=== PATIENT | female | born 1950 | race Caucasian/White ===

== ENCOUNTER 2016-10-30 13:34 | Emergency (ER) | payer MEDICARE ==
--- NOTE | 2016-10-30 16:00 | ED ---
Skin Complaint - HPI Summary HPI Summary: 66F presents with glass in right arm. She was walking in [facility] when a glass jar broke near her and she felt a piece of glass hit her arm. The pharmacy circled the piece of glass and sent her here. She has not tried to take it out. She denies any fever, spreading redness or signs of infection. She states it only hurts when she touches it. - History of Current Complaint Chief Complaint: EDRashSkinAbscess Time Seen by Provider: 10/30/16 15:28 Stated Complaint: ARM INJURY Pain Intensity: 2 - Allergy/Home Medications Allergies/Adverse Reactions: Allergies Allergy/AdvReac Type Severity Reaction Status Date / Time Adhesive Tape Allergy RED Verified 10/23/12 11:15 BLOTCHES ALL OVER Irbesartan [From Avapro] Allergy "FEELING Verified 10/23/12 11:15 OF SOMETHING CRAWLING IN HER HEAD" Rofecoxib [From Vioxx] Allergy "LIGHT Verified 10/23/12 11:15 HEADINESS" IVP DYE Allergy Hives Uncoded 10/23/12 11:15 PMH/Surg Hx/FS Hx/Imm Hx Endocrine/Hematology History: Denies: Hx Anticoagulant Therapy Cardiovascular History: Reports: Hx Coronary Artery Disease, Hx Hypertension - ON MEDS Comment Only: Other Cardiovascular Problems/Disorders - ON LIPITOR FOR NARROW ARTERIES Respiratory History: Reports: Other Respiratory Problems/Disorders - HX OF PNEUMONIA ABOUT 7 YEARS AGO Musculoskeletal History: Reports: Hx Arthritis - BILATERAL KNEES AND FEET Sensory History: Denies: Hx Contacts or Glasses, Hx Hearing Aid Opthamlomology History: Denies: Hx Contacts or Glasses - Cancer History Hx Chemotherapy: No Hx Radiation Therapy: No - Surgical History Surgery Procedure, Year, and Place: 2010 HAD D & C AFTER LAST ULTRASOUND FOR POLYPS. 1982 CHOLECYSTECTOMY, [facility] [place]. 1979 CSECTION, [facility] [place]. 1982 LEFT FIBULA FRACTURE REPAIRS, [facility] [place] Hx Anesthesia Reactions: Yes - NAUSEA, Infectious Disease History: No Infectious Disease History: Denies: Traveled Outside the [place] in Last 30 Days - Family History Known Family History: Positive: Diabetes - Social History Alcohol Use: None Substance Use Type: Reports: None Smoking Status (MU): Never Smoked Tobacco Review of Systems Negative: Fever Negative: Chest Pain Negative: Shortness Of Breath Positive: Other - piece of glass in arm All Other Systems Reviewed And Are Negative: Yes Physical Exam Triage Information Reviewed: Yes Vital Signs On Initial Exam: Initial Vitals Temp Pulse Resp BP Pulse Ox 96.3 F 83 16 158/70 95 10/30/16 13:47 10/30/16 13:47 10/30/16 13:47 10/30/16 13:47 10/30/16 13:47 Vital Signs Reviewed: Yes Appearance: Positive: Well-Appearing Skin: Positive: Warm, Dry, Other - 2mm piece of glass in right arm Head/Face: Positive: Normal Head/Face Inspection Eyes: Positive: Normal, Conjunctiva Clear Respiratory/Lung Sounds: Positive: Clear to Auscultation, Breath Sounds Present Cardiovascular: Positive: Normal, RRR Musculoskeletal: Positive: Strength/ROM Intact - right arm, Other - good pulses Diagnostics - Vital Signs Vital Signs Temp Pulse Resp BP Pulse Ox 10/30/16 15:29 96.3 F 83 16 158/70 95 10/30/16 13:47 96.3 F 83 16 158/70 95 - Laboratory Lab Statement: Any lab studies that have been ordered have been reviewed, and results considered in the medical decision making process. Course/Dx - Course Course Of Treatment: 66F presents with glass in right arm. She was walking in [facility] when a glass jar broke near her and she felt a piece of glass hit her arm. The pharmacy circled the piece of glass and sent her here. She has not tried to take it out. She denies any fever, spreading redness or signs of infection. She states it only hurts when she touches it. removed the piece of glass from her arm with tweezer. told to watch for signs of infection and keep it clean. patient understands and agrees with plan. - Differential Diagnoses - Skin Complaint Differential Diagnoses: Contact Dermatitis, Other - foreign body - Diagnoses Provider Diagnoses: Foreign body (FB) in soft tissue Discharge - Discharge Plan Condition: Good Disposition: HOME Patient Education Materials: Soft Tissue Foreign Body (ED) Referrals: Jace Modi MD [Primary Care Provider] - Additional Instructions: Place neosporin on area Return to ED if develop any signs of infection or any new or worsening symptoms
[2016-10-30 16:18] VITALS: BP 160/86
== END 2016-10-30 16:18 | disposition home or self-care (01) ==
LOC: ED 13:34
DX: S40.851A Superficial foreign body of right upper arm, initial encounter (principal); W45.8XXA Other foreign body or object entering through skin, initial encounter; Y93.89 Activity, other specified; Y92.89 Other specified places as the place of occurrence of the external cause
CPT/HCPCS: 99281

== ENCOUNTER 2016-11-16 09:40 | Emergency (ER) | payer MEDICARE ==
[2016-11-16] MEDS ORDERED: NS 0.9% 1000 ML* 1,000 ML IV ONE (09:44)
[2016-11-16] MEDS ORDERED: Ondansetron INJ* 2 MG/ML VIAL IV ONE ×2 (09:44→11:05)
[2016-11-16] MEDS ORDERED: Meclizine TAB* 12.5 MG PO ONE (09:44)
[2016-11-16 10:20] LABS: Hematocrit 38 % (35-47); Hemoglobin 12.4 g/dl (12.0-16.0); Mean Corpuscular HGB Conc 33 g/dl (31-36); Mean Corpuscular Hemoglobin 30 pg (27-31); Mean Corpuscular Volume 90 fL (80-97); Mean Platelet Volume 10 um3 (7.4-10.4); Red Blood Count 4.19 10^6/ul (4.0-5.4); Red Cell Distribution Width 14 % (10.5-15); White Blood Count 7.7 10^3/ul (3.5-10.8)
[2016-11-16 10:38] LABS: Troponin I 0.01 ng/mL (<0.04)
[2016-11-16 10:40] LABS: Albumin 3.5 g/dL (3.2-5.2); BUN/Creatinine Ratio 26.3 (8-20); C Reactive Protein 5.26 mg/L (< 5.00); EGFR Non-African American 71.5 (>60); Globulin 3.4 g/dL (2-4); Magnesium 1.9 mg/dL (1.9-2.7); Total Bilirubin 0.8 mg/dL (0.2-1.0); Total Protein 6.9 g/dL (6.4-8.9)
[2016-11-16 10:56] LABS: TSH (Thyroid Stimulating Horm) 5.23 mcIU/mL (0.34-5.60)
--- NOTE | 2016-11-16 10:57 | RAD ---
Indication: Sudden onset dizziness this morning. History of TIA. Comparison: August 31, 2005 Technique: Upright AP 1042 hours Report: Obese body habitus limits image quality. Clear lungs and pleural spaces. Negative for pneumothorax. Negative for cardiomegaly. Unremarkable central pulmonary vasculature. Prominent and tortuous thoracic aorta increased over the prior exam. IMPRESSION: Prominent and tortuous thoracic aorta increased over the prior exam. Consider CT for further assessment.
--- NOTE | 2016-11-16 11:29 | RAD ---
Indication: Dizziness. CT of the brain was performed without IV contrast. Ventricular structures are midline. No midline shift is noted. The extra-axial spaces are unremarkable. There is no evidence of intracranial mass or hemorrhage. No other high or low density lesions are identified. Mastoid air cells and paranasal sinuses are otherwise unremarkable. IMPRESSION: No intracranial mass or hemorrhage is noted.
[2016-11-16 12:39] LABS: Urine Bilirubin Negative (Negative); Urine Glucose Negative (Negative); Urine Nitrite Negative (Negative)
[2016-11-16] MEDS ORDERED: Metoclopramide TAB* 10 MG PO ONE (13:12)
[2016-11-16 13:38] VITALS: BP 115/78
--- NOTE | 2016-11-16 18:07 | ED ---
Maxwell Oden Alfonso, scribed for Robert Aly MD on 11/16/16 at 0956 . Dizziness - HPI Summary HPI Summary: This patient is a 66 year old F BIBA to [facility] with a chief complaint of dizziness since waking up this morning. The CC is described as room spinning. The patient rates the pain 0/10 in severity. Symptoms aggravated and alleviated by nothing. Patient reports nausea, weakness, and near syncope. Patient denies headache. PMHx of TIA, CAD, and HTN. - History Of Current Complaint Chief Complaint: EDSyncope Stated Complaint: DIZZINESS Time Seen by Provider: 11/16/16 09:50 Hx Obtained From: Patient Timing: Minutes - Waking up this morning Severity Initially: Moderate Severity Currently: Moderate Character: Room Spinning Aggravating Factor(s): Nothing Alleviating Factor(s): Nothing Associated Signs And Symptoms: Positive: Nausea, Other: - Positive weakness, and near syncope; Negative headache - Allergies/Home Medications Allergies/Adverse Reactions: Allergies Allergy/AdvReac Type Severity Reaction Status Date / Time Adhesive Tape Allergy RED Verified 10/23/12 11:15 BLOTCHES ALL OVER Irbesartan [From Avapro] Allergy "FEELING Verified 10/23/12 11:15 OF SOMETHING CRAWLING IN HER HEAD" Rofecoxib [From Vioxx] Allergy "LIGHT Verified 10/23/12 11:15 HEADINESS" IVP DYE Allergy Hives Uncoded 10/23/12 11:15 Home Medications: Home Medications Aspirin EC Low Dose* [Ecotrin EC Low Dose 81 MG*] 81 mg PO QAM 11/16/16 [ History Confirmed 11/16/16] Atorvastatin* [Lipitor*] 10 mg PO QAM 11/16/16 [History Confirmed 11/16/16] Metoprolol Succinate XL TAB* [Toprol XL TAB*] 50 mg PO QAM 11/16/16 [History Confirmed 11/16/16] PMH/Surg Hx/FS Hx/Imm Hx Endocrine/Hematology History: Denies: Hx Anticoagulant Therapy Cardiovascular History: Reports: Hx Coronary Artery Disease, Hx Hypertension - ON MEDS Comment Only: Other Cardiovascular Problems/Disorders - ON LIPITOR FOR NARROW ARTERIES Respiratory History: Reports: Other Respiratory Problems/Disorders - HX OF PNEUMONIA ABOUT 7 YEARS AGO Musculoskeletal History: Reports: Hx Arthritis - BILATERAL KNEES AND FEET Sensory History: Denies: Hx Contacts or Glasses, Hx Hearing Aid Opthamlomology History: Denies: Hx Contacts or Glasses Neurological History: Reports: Hx Transient Ischemic Attacks (TIA) - Cancer History Hx Chemotherapy: No Hx Radiation Therapy: No - Surgical History Surgery Procedure, Year, and Place: 2011 HAD D & C AFTER LAST ULTRASOUND FOR POLYPS. 1982 CHOLECYSTECTOMY, [facility]. 1979 CSECTION, [facility]. 1982 LEFT FIBULA FRACTURE REPAIRS, [facility] Hx Anesthesia Reactions: Yes - NAUSEA, Infectious Disease History: Denies: Traveled Outside the [place] in Last 30 Days - Family History Known Family History: Positive: Diabetes, Other - CVA and cancer - Social History Alcohol Use: None Substance Use Type: Reports: None Smoking Status (MU): Never Smoked Tobacco Review of Systems Positive: Nausea Neurological: Other - Positive roomspinning dizziness, weakness, and near syncope; negative headache. All Other Systems Reviewed And Are Negative: Yes Physical Exam - Summary Physical Exam Summary: VITAL SIGNS: Reviewed. GENERAL: Patient is a well-developed and obese female who is lying comfortable in the stretcher. Patient is not in any acute respiratory distress. She reports dizziness with room spinning. HEAD AND FACE: No signs of trauma. No ecchymosis, hematomas or skull depressions. No sinus tenderness. EYES: PERRLA, EOMI x 2, No injected conjunctiva, no nystagmus. No photophobia. EARS: Hearing grossly intact. Ear canals and tympanic membranes are within normal limits. MOUTH: Oropharynx within normal limits. NECK: Supple, trachea is midline, no adenopathy, no JVD, no carotid bruit, no c- spine tenderness, neck with full ROM. No meningeal signs, no Kernig's or brudzinskis signs. CHEST: Symmetric, no tenderness at palpation LUNGS: Clear to auscultation bilaterally. No wheezing or crackles. CVS: Regular rate and rhythm, S1 and S2 present, no murmurs or gallops appreciated. ABDOMEN: Soft, non-tender. No signs of distention. No rebound no guarding, and no masses palpated. Bowel sounds are normal. EXTREMITIES: FROM in all major joints, no edema, no cyanosis or clubbing. NEURO: Alert and oriented x 3. No acute neurological deficits. Speech is normal and follows commands. SKIN: Dry and warm GCS: 15 Triage Information Reviewed: Yes Vital Signs On Initial Exam: Initial Vitals Temp Pulse Resp Pulse Ox 96.5 F 74 20 98 11/16/16 09:46 11/16/16 09:46 11/16/16 09:46 11/16/16 09:46 Vital Signs Reviewed: Yes Diagnostics - Vital Signs Vital Signs Temp Pulse Resp Pulse Ox 11/16/16 09:46 96.5 F 74 20 98 - Laboratory Lab Results: Lab Results 11/16/16 11/16/16 11/16/16 Range/Units 10:02 10:02 10:02 WBC 7.7 (3.5-10.8) 10^3/ul RBC 4.19 (4.0-5.4) 10^6/ul Hgb 12.4 (12.0-16.0) g/dl Hct 38 (35-47) % MCV 90 (80-97) fL MCH 30 (27-31) pg MCHC 33 (31-36) g/dl RDW 14 (10.5-15) % Plt Count 308 (150-450) 10^3/ul MPV 10 (7.4-10.4) um3 Neut % (Auto) 66.0 (38-83) % Lymph % (Auto) 22.8 L (25-47) % [place] % (Auto) 5.8 (1-9) % Eos % (Auto) 4.2 (0-6) % Baso % (Auto) 1.2 (0-2) % Absolute Neuts (auto) 5.1 (1.5-7.7) 10^3/ul Absolute Lymphs (auto) 1.8 (1.0-4.8) 10^3/ul Absolute Monos (auto) 0.5 (0-0.8) 10^3/ul Absolute Eos (auto) 0.3 (0-0.6) 10^3/ul Absolute Basos (auto) 0.1 (0-0.2) 10^3/ul Absolute Nucleated RBC 0 10^3/ul Nucleated RBC % 0 Sodium 138 (133-145) mmol/L Potassium 4.0 (3.5-5.0) mmol/L Chloride 105 (101-111) mmol/L Carbon Dioxide 28 (22-32) mmol/L Anion Gap 5 (2-11) mmol/L BUN 21 (6-24) mg/dL Creatinine 0.80 (0.51-0.95) mg/dL Est GFR ( Amer) 92.0 (>60) Est GFR (Non-Af Amer) 71.5 (>60) BUN/Creatinine Ratio 26.3 H (8-20) Glucose 102 H (70-100) mg/dL Lactic Acid 1.0 (0.5-2.0) mmol/L Calcium 9.0 (8.6-10.3) mg/dL Magnesium 1.9 (1.9-2.7) mg/dL Total Bilirubin 0.80 (0.2-1.0) mg/dL AST 14 (13-39) U/L ALT 12 (7-52) U/L Alkaline Phosphatase 88 (34-104) U/L Troponin I 0.01 (<0.04) ng/mL C-Reactive Protein 5.26 H (< 5.00) mg/L B-Natriuretic Peptide ( - 100) pg/mL Total Protein 6.9 (6.4-8.9) g/dL Albumin 3.5 (3.2-5.2) g/dL Globulin 3.4 (2-4) g/dL Albumin/Globulin Ratio 1.0 (1-3) TSH 5.23 (0.34-5.60) mcIU/mL Urine Color Urine Appearance Urine pH (5-9) Ur Specific [place] (1.010-1.030) Urine Protein (Negative) Urine Ketones (Negative) Urine Blood (Negative) Urine Nitrate (Negative) Urine Bilirubin (Negative) Urine Urobilinogen (Negative) Ur Leukocyte Esterase (Negative) Urine Glucose (Negative) 11/16/16 11/16/16 Range/Units 10:02 12:20 WBC (3.5-10.8) 10^3/ul RBC (4.0-5.4) 10^6/ul Hgb (12.0-16.0) g/dl Hct (35-47) % MCV (80-97) fL MCH (27-31) pg MCHC (31-36) g/dl RDW (10.5-15) % Plt Count (150-450) 10^3/ul MPV (7.4-10.4) um3 Neut % (Auto) (38-83) % Lymph % (Auto) (25-47) % [place] % (Auto) (1-9) % Eos % (Auto) (0-6) % Baso % (Auto) (0-2) % Absolute Neuts (auto) (1.5-7.7) 10^3/ul Absolute Lymphs (auto) (1.0-4.8) 10^3/ul Absolute Monos (auto) (0-0.8) 10^3/ul Absolute Eos (auto) (0-0.6) 10^3/ul Absolute Basos (auto) (0-0.2) 10^3/ul Absolute Nucleated RBC 10^3/ul Nucleated RBC % Sodium (133-145) mmol/L Potassium (3.5-5.0) mmol/L Chloride (101-111) mmol/L Carbon Dioxide (22-32) mmol/L Anion Gap (2-11) mmol/L BUN (6-24) mg/dL Creatinine (0.51-0.95) mg/dL Est GFR ( Amer) (>60) Est GFR (Non-Af Amer) (>60) BUN/Creatinine Ratio (8-20) Glucose (70-100) mg/dL Lactic Acid (0.5-2.0) mmol/L Calcium (8.6-10.3) mg/dL Magnesium (1.9-2.7) mg/dL Total Bilirubin (0.2-1.0) mg/dL AST (13-39) U/L ALT (7-52) U/L Alkaline Phosphatase (34-104) U/L Troponin I (<0.04) ng/mL C-Reactive Protein (< 5.00) mg/L B-Natriuretic Peptide 91 ( - 100) pg/mL Total Protein (6.4-8.9) g/dL Albumin (3.2-5.2) g/dL Globulin (2-4) g/dL Albumin/Globulin Ratio (1-3) TSH (0.34-5.60) mcIU/mL Urine Color Yellow Urine Appearance Clear Urine pH 7.0 (5-9) Ur Specific [place] 1.014 (1.010-1.030) Urine Protein Negative (Negative) Urine Ketones Negative (Negative) Urine Blood Negative (Negative) Urine Nitrate Negative (Negative) Urine Bilirubin Negative (Negative) Urine Urobilinogen Negative (Negative) Ur Leukocyte Esterase Negative (Negative) Urine Glucose Negative (Negative) Result Diagrams: 11/16/16 10:02 11/16/16 10:02 Lab Statement: Any lab studies that have been ordered have been reviewed, and results considered in the medical decision making process. - Radiology CXR Radiology Interpretation Completed By: Radiologist - Prominent and tortuous thoracic aorta increased over the prior exam. Consider CT for further assessment. - CT Brain CT Interpretation Completed By: Radiologist - No intracranial mass or hemorrhage is noted. - EKG 0958 Cardiac Rate: NL - BPM 77 EKG Rhythm: Sinus Rhythm ST Segment: Normal Re-Evaluation - Re-Evaluation First Eval Re-Evaluation Time: 13:08 Comment: She is feeling better. Labs and imaging results reviewed. Dizzy Course/Dx - Course Course Of Treatment: This patient is a 66 year old F BIBA to [facility] with a chief complaint of dizziness since waking up this morning. The CC is described as room spinning. The patient rates the pain 0/10 in severity. Symptoms aggravated and alleviated by nothing. Patient reports nausea, weakness, and near syncope. Patient denies headache. PMHx of TIA, CAD, and HTN. Assessment/Plan: Test results with no significant abnormalities. Urinalysis negative for UIT. An EKG reveals NSR. A CXR reveals Prominent and tortuous thoracic aorta increased over the prior exam. Consider CT for further assessment. A CT brain reveals No intracranial mass or hemorrhage is noted. In the ED course the patient was hydrated with IV fluids, given Zofran and Reglan for N/V, and antivert for dizziness. After medication the symptoms resolved. The patient is asymptomatic and ambulating without any difficulty. Therefore, I believe the symptoms are secondary to vertigo. The patient will be discharged with PCP follow up. The patient is hemodynamically stable and alert and oriented to person, place, and time. I discussed all the findings and test results with the patient. Patient was instructed to return to the emergency room immediately if any of the symptoms return or worsens. Patient understands and agrees. Plan of care was discussed with the patient and patient understands and agrees with the plan of care. All questions were answered at patient satisfaction. There were no further complaints or concerns. Patient is alert and oriented x 3. Patient vital signs are stable. Patient is to follow up with primary care physician in the next 2 to 3 days. Patient understands and agrees. - Diagnoses Differential Diagnosis/HQI/PQRI: CVA, Dysrhythmia, Seizure, Transient Ischemic Attack, Vasovagal Reaction Provider Diagnoses: Vertigo Discharge - Discharge Plan Condition: Stable Disposition: HOME Prescriptions: Meclizine TAB* [Antivert 12.5 TAB*] 25 mg PO TID PRN #30 tab PRN Reason: Vertigo Ondansetron TAB* [Zofran 4 MG Tab*] 4 mg PO Q6H PRN #12 tab PRN Reason: Vomiting Patient Education Materials: Vertigo (ED) Referrals: Jace Modi MD [Primary Care Provider] - 3 Days The documentation as recorded by the Maxwell craig Alfonso accurately reflects the service I personally performed and the decisions made by Jermain rollins Walter, MD.
== END 2016-11-16 14:16 | disposition home or self-care (01) ==
LOC: ED 09:40
DX: R42 Dizziness and giddiness (principal); R55 Syncope and collapse; R11.0 Nausea; R53.1 Weakness
CPT/HCPCS: 36415; 70450; 71010; 80053; 81003; 83605; 83735; 83880; 84443; 84484; 85025; 86140; 99283; A9270-GY; J2405

== ENCOUNTER 2017-03-22 11:57 | Day surgery (SDC) | payer MEDICARE ==
[~2017-03-22 11:57] MED LIST: Buffered Lidocaine 0.9% SYRIN* 5 ML/SYR SYRINGE INTRADERM ONE; DiMENhydriNATE IV* 50 MG/ML VIAL IV PUSH PRN; Famotidine IV* 10 MG/ML 2 ML (20 mg) IV ONE; Ondansetron INJ* 2 MG/ML VIAL IV PRN; PROCHLORPERAZINE INJ 5 MG/ML 2 ML VIAL IV PRN
[2017-03-22] MEDS ORDERED: Buffered Lidocaine 0.9% SYRIN* 5 ML/SYR SYRINGE ONE (12:10)
[2017-03-22] MEDS ORDERED: Famotidine IV* 10 MG/ML 2 ML (20 mg) ONE (12:10)
[2017-03-22] MEDS ORDERED: KETAMINE HCL* 50 MG/ML 10 ML VIAL ONE (12:35)
[2017-03-22] MEDS ORDERED: fentaNYL* 50 MCG/ML 2 ML VIAL (100 MCG VIAL) ONE (12:35)
[2017-03-22] MEDS ORDERED: Midazolam* 1 MG/ML 10 ML VIAL (10 MG) ONE (12:36)
[2017-03-22] MEDS ORDERED: Benzocaine/Butamben/Tetracain* SPRAY ONE (13:02)
[2017-03-22] MEDS ORDERED: Atracurium* 10 MG/ML 10 ML VIAL ONE (14:49)
[2017-03-22] MEDS ORDERED: Ondansetron INJ* 2 MG/ML VIAL ONE (15:00)
[2017-03-22] MEDS ORDERED: Glycopyrrolate IV* 0.2 MG/ML 1 ML VIAL ONE (15:00)
[2017-03-22] MEDS ORDERED: Propofol* 10 MG/ML 20 ML BTL IV PUSH ONE (15:00)
[2017-03-22] MEDS ORDERED: Dexamethasone IV* 4 MG/ML 1 ML (4 MG) ONE (15:00)
[2017-03-22] MEDS ORDERED: Succinylcholine* 20 MG/ML 10 ML VIAL ONE (15:00)
[2017-03-22] MEDS ORDERED: Neostigmine Methylsulfate* 2 MG/2 ML SYRINGE ONE (15:00)
[2017-03-22] MEDS ORDERED: Labetalol IV* 5 MG/ML 20 ML VIAL ONE (15:18)
[2017-03-22 16:26] VITALS: BP 107/69
--- NOTE | 2017-03-23 05:28 | PRO ---
CC: Dr. Jace Modi * GASTROENTEROLOGY OPERATIVE REPORT: DATE OF PROCEDURE: 03/22/17 OPERATIVE PROCEDURE: Colonoscopy to terminal ileum. SURGEON: Connie Martinez MD ANESTHESIA: General. HISTORY OF PRESENT ILLNESS: Yun Panda is a pleasant 66-year-old female with a family history of colon cancer. Her last colonoscopy was performed in 2011 revealing benign polyps. She is here for surveillance colonoscopy. She denies any personal gastrointestinal complaints at this time. PREOPERATIVE DIAGNOSES: 1. Family history of colon cancer. 2. Personal history of benign colon polyps seen on colonoscopy in 2012. POSTOPERATIVE DIAGNOSES: 1. Normal appearing terminal ileum. 2. A 6 mm sessile ascending colon polyp with hot snare polypectomy. 3. Small nonbleeding internal hemorrhoid on retroflexion with hypertrophied anal papilla. 4. Fair colonoscopy preparation. RECOMMENDATIONS: 1. We will follow up with path results and determine timing of repeat colonoscopy after review of all of these results. DESCRIPTION OF PROCEDURE: Colonoscopy was explained in detail to the patient. The risks, benefits, complications, alternatives, possibilities of missed lesions were explained and understood. Complications included, but were not limited to, reaction to anesthesia, aspiration, increased risk of bleeding, and perforation. All questions were answered. The patient demonstrated understanding of the conversation. Informed consent was obtained. Next, the patient was brought to the OR suite and placed in the left lateral recumbent position where blood pressure, cardiac and oxygen monitors were applied. The patient was found to be a fit candidate for general anesthesia. After adequate sedation was achieved, digital rectal examination was performed, which revealed normal sphincter tone. No palpable masses were appreciated. Next, a standard pediatric colonoscope was inserted through the rectum, maneuvered all the way to the cecal base where the ileocecal valve and appendiceal orifice were identified and photographed. The terminal ileum was also intubated and was normal appearing. Subsequently, the colonoscope was withdrawn in a fashion that allowed adequate visualization of bowel. The patient had normal mucosa and vascular pattern throughout the colon. The cecum was normal appearing. Entry into the ascending colon revealed a 6 mm sessile polyp. It was removed via hot snare. Hemostasis was seen post polypectomy. Colonoscope was further withdrawn revealing a normal transverse descending sigmoid colon. On retroflexion, the patient had small nonbleeding internal hemorrhoid and a hypertrophied anal papilla. Air was then removed from the patient. Colonoscope was removed from the patient. The patient tolerated the procedure well. There were no immediate complications. 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 Thank you, Dr. Jace Modi, for allowing us to participate in the care of your patient. If you should have any further questions or concerns, please do not hesitate to contact us. [id number]/[facility] #: [id number] MTDMoni
--- NOTE | 2017-03-23 05:28 | PRO ---
CC: Dr. Modi * GASTROENTEROLOGY OPERATIVE REPORT: DATE OF PROCEDURE: 03/22/17 - [facility] OPERATIVE PROCEDURE: Esophagogastroduodenoscopy to the second portion of duodenum. SURGEON: Connie Martinez MD ANESTHESIA: General. HISTORY OF PRESENT ILLNESS: Yun Panda is a pleasant 66-year-old female who presents today for an endoscopy for further evaluation of epigastric pain. PREOPERATIVE DIAGNOSIS: 1. Epigastric pain. POSTOPERATIVE DIAGNOSES: 1. Normal appearing Z-line at 40 cm from the incisors, with biopsies. 2. Normal mid and proximal esophagus. 3. Minimal change antral gastritis, with biopsies from the antrum and body and CLOtest. 4. Mild duodenitis of the bulb. 5. Normal appearing second portion of the duodenum, with biopsies from the bulb and second portion to rule out celiac disease. RECOMMENDATIONS: 1. We will follow up with biopsy results. 2. The patient should follow up in our office in 1 to 2 weeks to review biopsy results and determine further plan of care. DESCRIPTION OF PROCEDURE: Esophagogastroduodenoscopy was explained in detail to the patient. The risks, benefits, complications, alternatives, and possibilities of missed lesions were explained and understood. Complications included, but were not limited to reaction to anesthesia, aspiration, increased risk of bleeding, and perforation. All questions were answered. The patient demonstrated understanding of the conversation. Informed consent was obtained. Next, the patient was brought to the OR, placed in the left lateral recumbent position where blood pressure, cardiac, and oxygen monitors were applied. The patient was found to be a fit candidate for general anesthesia due to comorbidities. After adequate sedation was achieved, a bite-block was placed. Next, a standard Olympus endoscope was inserted per os under direct visualization of the first and second portion of the duodenum. Second portion of the duodenum was grossly unremarkable. Entry into the bulb revealed mild erythematous changes consistent with duodenitis. Cold forceps biopsies were obtained from the duodenum that was visualized to rule out celiac disease. Further withdrawal of the endoscope into the gastric lumen revealed very mild erythema in the antrum. Cold forceps biopsies were obtained from the antrum and body and a CLOtest was also performed. On retroflexion, the patient had a normal gastric cardia sling. Further withdrawal of the endoscope into the distal esophagus revealed a regular appearing Z-line at 40 cm from the incisors. Biopsies were obtained from this area. The rest of the tubular esophagus was normal appearing. Air was then removed from the patient, endoscope was removed from the patient. The patient tolerated the procedure well. There were no immediate complications. After a period of observation, the patient was discharged home with a driver supervisor in stable condition. Thank you, Dr. Modi, for allowing us to participate in the care of your patient. If you should have any further questions or concerns, please do not hesitate to contact us. [id number]/[facility] #: [id number] MAUREEN
== END 2017-03-22 16:26 | disposition home or self-care (01) ==
LOC: OR 11:57
PROVIDERS: ATTEND Internal Medicine Gastroenterology
DX: R10.13 Epigastric pain (principal); K29.70 Gastritis, unspecified, without bleeding; K29.80 Duodenitis without bleeding; Z80.0 Family history of malignant neoplasm of digestive organs; Z86.010 Personal history of colon polyps; Z12.11 Encounter for screening for malignant neoplasm of colon; D12.2 Benign neoplasm of ascending colon; I10 Essential (primary) hypertension
CPT/HCPCS: 87077; 88305; A9270-GY; J0330; J1100; J2250; J2405; J2704; J3010

== ENCOUNTER 2019-07-29 13:00 | Inpatient (IN) | payer MEDICARE, OTHER ==
--- OUTSIDE RECORDS SUMMARY | 2019-07-29 13:26 | XMS REPORT | Continuity of Care Document ---
:1950 External Reference #:[id number] Author Name JEFFERY Santiago Address [address] [place] [address] Care Team Providers Name Role Phone [place] Penny - Obstetrics & Care Team Information [place] [phone] Gynecology Jace Modi MD - Family Medicine Care Team Information [place] Problems Active Problems Provider Date Essential hypertension Franko Aguiar M.D. Onset: 04/27/1999 Hyperlipidemia Jace Modi M.D. Onset: 09/08/2005 Obesity Jace Modi M.D. Onset: 09/08/2005 Degenerative joint disease involving Jace Modi M.D. Onset: 09/08/2005 multiple joints Transient cerebral ischemia Jace Modi M.D. Onset: 09/08/2005 Disorder of menstruation Jace Modi M.D. Onset: 03/24/2011 Cough Jace Modi M.D. Onset: 03/12/2015 Conjunctivitis Jace Modi M.D. Onset: 03/12/2015 Mixed hyperlipidemia Jace Modi M.D. Onset: 03/12/2015 Social History Type Date Description Comments Sex Unknown Tobacco Use Start: Unknown Nonsmoker Tobacco Use Start: Unknown Patient has never smoked Allergies, Adverse Reactions, Alerts Active Allergies Reaction Severity Comments Date Avapro Light-Headed 04/14/2005 Adhesives 12/25/2008 Contrast Dye 10/26/2016 Medications Active Medications SIG Qnty Indications Ordering Provider Date Lipitor 1 by mouth 90tabs E78.4 Jace Modi, 03/28/2019 40mg Tablets every day M.D. Aspirin 1 po qd Family Medicine 11/26/2008 81mg Che[facility] Toprol XL take one tablet 90tabs Jace RuizMarkus Rian, 01/15/2001 50mg Tablets by mouth every M.D. ER 24HR day Immunizations CPT Code Status Date Vaccine Lot # [id number] Given 01/26/2019 High-Dose, Influenza Virus Vacccine-fluzone 65 and older 80097 Given 03/24/2018 Tdap Tetanus, W Pertussis 14506 Given 01/22/2018 High-Dose, Influenza Virus Vacccine-fluzone 65 and older 17460 Given 08/28/2014 Pneumococcal Conjugate Vacc-13 [id number] 70166 Given 03/13/2013 DO Not Use Split Influenza Virus Vaccine 01744 Given 03/27/2007 Tetanus And Diptheria Adult Preservative Free >7Yrs 36477 Given 03/27/2007 DO Not Use Split Influenza Virus Vaccine [id number] 55580 Given 01/02/2006 Pneumococcal Immunization [id number] 71628 Given 03/17/2005 DO Not Use Split Influenza Virus Vaccine 95637 Given 01/10/2002 Influenza Immunization 91388 Given 01/10/2002 DO Not Use Split Influenza Virus Vaccine 70962 Given 01/15/2001 Influenza Immunization 16541 Given 01/15/2001 DO Not Use Split Influenza Virus Vaccine Vital Signs Date Vital Result Comment 06/12/2019 9:13am BP Systolic 162 mmHg BP Diastolic 90 mmHg BP Systolic Recheck 142 mmHg BP Diastolic Recheck 88 mmHg Heart Rate 84 /min Body Temperature 97.2 F Height 66.5 inches 5'6.50" Weight 342.00 lb BMI (Body Mass Index) 54.4 kg/m2 03/28/2019 1:07pm BP Systolic 130 mmHg BP Diastolic 84 mmHg Heart Rate 60 /min Body Temperature 97.7 F Respiratory Rate 12 /min Height 66.5 inches 5'6.50" Weight 347.00 lb BMI (Body Mass Index) 55.2 kg/m2 Results Test Acquired Date Facility Test Result H/L Range Note Laboratory test 02/27/2019 [facility] SEE RESULT 1, 2 finding BELOW Comprehensive 12/19/2018 [facility]) Sodium 143 mEq/L 134-149 Metabolic Prof Potassium 5.1 mEq/L 3.6-5.5 Chloride 106 mEq/L 94-112 Carbon Dioxide 29 mEq/L 21-32 Glucose 105 mg/dL 70-105 BUN 11 mg/dL 6-26 Creatinine 0.8 mg/dL 0.6-1.4 BUN/Creat Ratio 13.8 CALC 8.0-36.0 Calcium 9.4 mg/dL 8.6-10.2 Total Protein 7.5 g/dL 6.4-8.3 Albumin 4.1 g/dL 3.8-5.5 Globulin 3.4 g/dL 2.0-4.8 A/G Ratio 1.2 CALC 0.6-2.3 Alk. Phosphatase 110 U/L 30-110 Alt (SGPT) 20 U/L 7-35 Ast (Sgot) 20 U/L 5-34 Total Bilirubin 1.0 mg/dL 0.2-1.3 GFR Non- >60 ml/min/1.73m^ >=60 GFR >60 ml/min/1.73m^ >=60 Lipid Profile 12/19/2018 [facility]) Cholesterol 158 mg/dL 120- 200 Triglycerides 67 mg/dL 30-200 HDL Cholesterol 39 mg/dL 30-85 LDL (Calculated) 106 CALC 0-129 VLDL Cholesterol 13 mg/dL 0-50 HDL Risk Factor 4.1 CALC 0.0-4.4 1 [id number] 2 SEE RESULT BELOW Name: KRISTA FLAHERTY J : [address]: Ruby Smith MD Acct: [id number] Unit: [id number] AGE: 68 Location: [facility] Re02/27/19 SEX: F Status: REG REF SPEC: [id number] ORACIO: 02/27/19-[address] [facility] [address]: Ruby Smith MD REQ: [id number] RECD: 02/27/19-1196 STATUS: MAXI ROGERS DR: Jace Modi MD _ ORDERED: TP IMAGE ANALYS, HPV/Thin Prep COMMENTS: [id number] FINAL DIAGNOSIS Negative for Intraepithelial lesion or Malignancy HPV RESULTS Date Time Test Result Flag (u) Normal Range 02/27/19 0945 HPV DEJAH Negative Negative The high-risk HPV types detected by the assay include: 16, 18, 31, 33, 35, 39, 45, 51, 52, 56, 58, 59, 66, and 68. SPECIMEN(S) RECEIVED A. Ectocervical/Endocervical CYTOLOGY ADEQUACY Specimen Adequacy: Satisfactory of evaluation Transformation zone component identified CONTINUED ON NEXT PAGE DEPARTMENT OF PATHOLOGY, [address] [place] [address] Franko King M.D. Director [facility] # [id number] CYTOLOGY PATIENT INFORMATION Patient Information: HPV: High risk HPV RNA testing regardless of pap results. Actual Specimen Date: 02/27/19 LMP If Unknown: 1991 Signed by and Reported on: IGNACIO Diaz (ASCP) 1533 This Pap test was evaluated with the assistance of the [employer] Test Imaging System. Due to cytologic findings at the sales planning analyst microscope, comprehensive manual rescreening by a Z Os Mainframe Systems Programmer may be required. The Pap Smear is a screening test designed to aid in the detection of premalignant and malignant conditions of the uterine cervix. It is not a diagnostic procedure and should not be used as the sole means of detecting cervical cancer. Both false- positive and false- negative reports do occur. Depending on your risk status, a Pap smear should be obtained and evaluated every 1-3 years. END OF REPORT DEPARTMENT OF PATHOLOGY, [address] [place] [address] Franko King M.D. Director [facility] # [id number] Procedures Date Code Description Status 04/24/2018 [id number] Mammogram Completed 04/14/2018 [id number] Mammogram Completed 03/22/2017 [id number] Colonoscopy Completed 01/16/2017 [id number] Mammogram Completed 10/29/2015 [id number] Mammogram Completed 10/23/2014 [id number] Mammogram Completed 08/27/2013 [id number] Mammogram Completed 02/03/2012 [id number] Colonoscopy Completed 01/02/2012 [id number] Mammogram Completed 12/30/2010 [id number] Mammogram Completed 12/10/2009 [id number] Mammogram Completed 04/18/2008 [id number] Mammogram Completed 01/29/2007 [id number] Colonoscopy Completed 01/09/2007 [id number] Mammogram Completed 12/29/2005 [id number] Mammogram Completed Medical Devices Description No Information Available Encounters Type Date Location Provider Dx Diagnosis Office Visit 03/28/2019 Main Office Jace Modi, E78.2 Mixed hyperlipidemia 1:00p M.D. I10 Essential (primary) hypertension Z12.39 Encounter for oth screening for malignant neoplasm of breast Assessments Date Code Description Provider 06/12/2019 D48.5 Neoplasm of uncertain behavior of skin JEFFERY Santiago 03/28/2019 E78.2 Mixed hyperlipidemia Jace Modi M.D. 03/28/2019 I10 Essential (primary) hypertension Jace Modi M.D. 03/28/2019 Z12.39 Encounter for other screening for malignant Jace Modi M.D. neoplasm of breast 12/19/2018 E78.2 Mixed hyperlipidemia Jace Modi M.D. Plan of Treatment Future Appointment(s):06/26/2019 9:15 am - JEFFERY Santiago at [facility] Atszoa0509/25/2019 10:10 am - Jace Modi M.D. at [facility] Kvvswm8206/12/2019 - Maryan Connell PAD48.5 Neoplasm of uncertain behavior of skinComments:See Dr. Castellon for further evaluation - June 19 11:15 am Continue calamine lotion on the lesion Return if neededAllComments:PCMHMedication Management Patient Understands medications he's taking? Yes Are there Barriers to Adherence? No Has the patient been asked about herbal supplements and therapies, and OTC meds? Yes Care Plan1. Patient has been queried about patient's goals/preferences and functional/lifestyle goals at relevant visits. Yes If relevant, describe: N/A2. Treatment goals as explained to the patient: above3. Are there barriers to meeting treatment goals? No If Yes , please describe:4. Self-Management goals as described to the patient: Yes As always, we strongly encourage a healthy diet and making physical activity a part of your every day life. If you have questions about how or where to start, please contact the office. Functional Status Description No Information Available Mental Status Description No Information Available Referrals Description No Information Available
--- OUTSIDE RECORDS SUMMARY | 2019-07-29 13:26 | XMS REPORT | Continuity of Care Document ---
:1950 External Reference #:[id number] Author Name Nani Juárez NP (transmitted by agent of provider Lara Norman) Address [address] [id number] Care Team Providers Name Role Phone [place] - Obstetrics & Care Team Information [place] [phone] Gynecology Jace Modi MD - Family Medicine Care Team Information [place] Problems Active Problems Provider Date Essential hypertension [...] Use Start: Unknown Patient has never smoked Smoking Status Reviewed: 07/29/19 Patient has never smoked Allergies, Adverse Reactions, Alerts Active Allergies Reaction Severity Comments Date Avapro Light-Headed 04/14/2005 Adhesives 12/25/2008 Contrast Dye 10/26/2016 Medications Active Medications SIG Qnty Indications Ordering Provider Date Lipitor 1 by mouth 90tabs E78.4 Jace Modi, 03/28/2019 40mg Tablets every day M.D. Aspirin 1 po qd Family Medicine 11/26/2008 81mg [facility] Toprol XL take one tablet 90tabs Jace Modi, 01/15/2001 50mg Tablets by mouth every M.D. ER 24HR day Immunizations CPT Code Status Date Vaccine Lot # [id number] Given 01/26/2019 High-Dose, Influenza Virus Vacccine-fluzone 65 and older 94802 Given 03/24/2018 Tdap Tetanus, W Pertussis 61744 Given 01/22/2018 High-Dose, Influenza Virus Vacccine-fluzone 65 and older 81312 Given 08/28/2014 Pneumococcal Conjugate Vacc-13 [id number] 46362 Given 03/13/2013 DO Not Use Split Influenza Virus Vaccine 31526 Given 03/27/2007 Tetanus And Diptheria Adult Preservative Free >7Yrs 41649 Given 03/27/2007 DO Not Use Split Influenza Virus Vaccine [id number] 09422 Given 01/02/2006 Pneumococcal Immunization 1007P 02510 Given 03/17/2005 DO Not Use Split Influenza Virus Vaccine 22237 Given 01/10/2002 Influenza Immunization 11515 Given 01/10/2002 DO Not Use Split Influenza Virus Vaccine 81655 Given 01/15/2001 Influenza Immunization 87331 Given 01/15/2001 DO Not Use Split Influenza Virus Vaccine Vital Signs Date Vital Result Comment 07/29/2019 11:04am BP Systolic 154 mmHg BP Diastolic 108 mmHg Heart Rate 78 /min Body Temperature 97.9 F Respiratory Rate 16 /min O2 % BldC Oximetry 98 % Weight 351.00 lb 06/12/2019 9:13am BP Systolic 162 mmHg BP Diastolic 90 mmHg BP Systolic Recheck 142 mmHg BP Diastolic Recheck 88 mmHg Heart Rate 84 /min Body Temperature 97.2 F Height 66.5 inches 5'6.50" Weight 342.00 lb BMI (Body Mass Index) 54.4 kg/m2 Results Test Acquired Date Facility Test Result H/L Range Note Laboratory test 07/29/2019 [facility](a) TSH <pending> 0.5-5.0 finding CBC Electronic ([facility] 07/29/2019 family medicine WBC 8.36 4.0-10.0 New) (607)- - RBC 4.44 3.93-6.0 Hemoglobin (Fma/CMC/CTX) 13.1 g/dL 12.0-17.0 Hematocrit (Fma/CMC/CTX) 41.1 % 35.0-50.0 Mean Corpuscular Vol 92.6 fL 80-95 Mean Corpuscular Hemoglobin 29.5 pg 25.6-32.2 Mean Corpuscular Hemo Concen 31.9 g/dL Low 32.2-36.0 Platelets 334 10^3/ul 163-400 RDW-CV 14.4 11.6-14.4 Mean Platelet Volume 11.7 fL 8.0-12.4 Absolute Neutrophils BLD 5.63 1.56-6.13 Absolute Lymphocytes 1.84 1.18-3.74 Absolute Monocytes BLD Auto 0.47 0.24-0.82 Absolute Eos Blood 0.32 0.04-0.54 Absolute Basophils 0.08 0.01-0.08 Neutrophil % 67.4 % 34.0-70.0 Lymph% 22.0 % 20.0-52.0 Monocytes % 5.6 % 5.0-12.0 Eos % 3.8 % 0.7-7.0 Basophil% 1.0 % 0-1.2 Laboratory test 07/29/2019 [facility] Troponin-I/TnI <pending> NG/ML 0-0.64 finding (607)- - D Dimer Quant (Fma) <pending> ng/mL 0.0-400 Laboratory test finding 02/27/2019 [facility] SEE RESULT BELOW 1, 2 1 [id number] 2 SEE RESULT BELOW Name: KRISTA FLAHERTY : [address]: Ruby Smith MD Acct: [id number] Unit: [id number] AGE: 68 Location: [facility] Re02/27/19 SEX: F Status: REG REF SPEC: [id number] ORACIO: 02/27/19-[address] [facility] [address]: Ruby Smith MD REQ: [id number] RECD: 02/27/19 STATUS: MAXI ROGERS DR: Jace Modi MD _ ORDERED: TP IMAGE ANALYS, HPV/Thin Prep COMMENTS: [id number] FINAL DIAGNOSIS Negative for Intraepithelial lesion or Malignancy HPV RESULTS Date Time Test Result Flag (u) Normal Range 02/27/19944 HPV DEJAH Negative Negative The high-risk HPV types detected by the assay include: 16, 18, 31, 33, 35, 39, 45, 51, 52, 56, 58, 59, 66, and 68. SPECIMEN(S) RECEIVED A. Ectocervical/Endocervical CYTOLOGY ADEQUACY Specimen Adequacy: Satisfactory of evaluation Transformation zone component identified CONTINUED ON NEXT PAGE DEPARTMENT OF PATHOLOGY, [address] [place] [address] Franko King M.D. Director [facility] # [id number] CYTOLOGY PATIENT INFORMATION Patient Information: HPV: High risk HPV RNA testing regardless of pap results. Actual Specimen Date: 02/27/19 LMP If Unknown: 1991 Signed by and Reported on: IGNACIO Diaz (ASCP) 1533 This Pap test was evaluated with the assistance of the [employer] Test Imaging System. Due to cytologic findings at the pre sales network engineer microscope, comprehensive manual rescreening by a Supply Chain Buyer may be required. The Pap Smear is [...] years. END OF REPORT DEPARTMENT OF PATHOLOGY, [address] [place] [address] Franko King M.D. Director [facility] # [id number] Procedures Date Code Description Status 07/29/2019 25660 Pulse Oximetry Completed 07/29/2019 75869 Electrocardiogram Complete Completed 04/24/2018 [id number] Mammogram Completed 04/14/2018 [id number] Mammogram Completed 03/22/2017 [id number] Colonoscopy Completed 01/16/2017 [id number] Mammogram Completed 10/29/2015 [id number] Mammogram Completed 10/23/2014 [id number] Mammogram Completed 08/27/2013 [id number] Mammogram Completed 02/03/2012 [id number] Colonoscopy Completed 01/02/2012 [id number] Mammogram Completed 12/30/2010 [id number] Mammogram Completed 12/10/2009 [id number] Mammogram Completed 04/18/2008 [id number] Mammogram Completed 01/29/2007 [id number] Colonoscopy Completed 01/09/2007 [id number] Mammogram Completed 12/29/2005 [id number] Mammogram Completed Medical Devices Description No Information Available Encounters Type Date Location Provider Dx Diagnosis Office Visit 07/29/2019 Main Office Nani Juárez, R06.02 Shortness of breath 11:00a VASCULAR MANAGER R00.2 Palpitations E78.2 Mixed hyperlipidemia I10 Essential (primary) hypertension E66.9 Obesity, unspecified Z86.73 Prsnl hx of TIA (TIA), and cereb infrc w/o resid deficits Z71.9 Counseling, unspecified Office Visit 06/12/2019 9:30a [facility] Office Maryan Miramontes D48.5 Neoplasm of JEFFERY Connell uncertain behavior of skin Office Visit 03/28/2019 1:00p Main Office Jace Salinas E78.2 Mixed hyperlipidemia Jacinto Modi I10 Essential (primary) hypertension Z12.39 Encounter for oth screening for malignant neoplasm of breast Assessments Date Code Description Provider 07/29/2019 R06.02 Shortness of breath Nani Juárez, EDILMA 07/29/2019 R00.2 Palpitations Nani Juárez NP 07/29/2019 E78.2 Mixed hyperlipidemia Nani Juárez, EDILMA 07/29/2019 I10 Essential (primary) hypertension Nani Juárez, EDILMA 07/29/2019 E66.9 Obesity, unspecified Nani Juárez, EDILMA 07/29/2019 Z86.73 Personal history of transient ischemic Nani Juárez , EDILMA attack (TIA), and cerebral infarction without residual deficits 07/29/2019 Z71.9 Counseling, unspecified aNni Juárez, VASCULAR MANAGER 06/12/2019 D48.5 Neoplasm of uncertain behavior of skin JEFFERY Santiago 03/28/2019 E78.2 Mixed hyperlipidemia Jace Modi M.D. 03/28/2019 I10 Essential (primary) hypertension Jace Modi M.D. 03/28/2019 Z12.39 Encounter for other screening for malignant Jace Modi M.D. neoplasm of breast Plan of Treatment Future Appointment(s):09/25/2019 10:10 am - Jace Modi M.D. at [facility] Lervfh4107/29/2019 - Nani Juárze, NPR06.02 Shortness of breathComments: Patient was instructed to call or return if symptoms of shortness of breath wlqgsyA14.2 PalpitationsComments:Make sure you are drinking at least 8-10 glasses of water a dayReturn or seek medical care for the following: numbness or tingling of your extremitieschest painsevere headachechange in your visionchange in speech loss of consciousness Notify office if worsening symptoms or failure to improve.E78.2 Mixed hyperlipidemiaComments:continue [id number] Essential (primary) hypertensionComments:The patient will continue to monitor blood pressure and let me know the blood pressure results if there are readings persistently above 140/80. Goal blood pressure is less than 140/80. Recommend low salt/cardiac diet and routine exercise.E66.9 Obesity, unspecifiedComments:Counseled on heart healthy diet such as Mediterranean diet. Eat protein and vegetables first then carbohydrates last. Get at least 150 minutes of moderate aerobic activity or 75 minutes of vigorous aerobic activity a week, or a combination of moderate and vigorous activity. General goal of 30 minutes of physical activity a day Once you are feeling better try to get back on track! 50 lb down is amazing! But I don't want the pandemic to have you losing your progress!Z86.73 Personal history of transient ischemic attack (TIA) , and cerebral infarction without residualdeficitsComments:Hx of TIA - on betablocker, statin, and ASA 81pnD64.9 Counseling, unspecifiedComments:Who is at higher risk?Older adults > 60People who have serious chronic medical conditions like:Heart diseaseDiabetesLung diseaseTake everyday preventive actions: - Stay home as much as possible and limit contact with people to 6 feet - Practice social distancing and stay away from anyone who is sick-Wash your hands often with soap and water for at least 20 seconds, especially after blowing your nose, coughing, or sneezing, or having been in a public place.-If soap and water are not available, usea hand radiology nurse that contains at least 60 % alcohol.-To the extent possible, avoid touching high-touch surfaces in public places ?? elevator buttons, door handles, handrails, handshaking with people, etc. Use a tissue or your sleeve to cover your hand or finger if you must touch something.-Wash your hands after touching surfaces in public places.-Avoid touching your face, nose, eyes, etc.-Clean and disinfect your home to remove germs: practice routine cleaning of frequently touched surfaces (for example: tables, doorknobs, light switches, handles, desks, toilets, faucets, sinks &amp ; cell phones)-Avoid crowds, especially in poorly ventilated spaces. Your risk of exposure to respiratory viruses like COVID-19 may increase in crowded, closed -in settings with little air circulation if there are people in the crowd who are sick.-Avoid all non-essential travel including plane trips, and especially avoid embarking on cruise ships.What to do if you get sickStay home and call your doctor. We can evaluate with phone or telemedicine/video visits.This will help them take care of you and keep other people from getting infected or exposed.If you are not sick enough to be hospitalized, you can recover at home. Follow CDC instructions for how to take care of yourself at home.Know when to get emergency help.Get medical attention immediately if you have any of the emergency warning signs listed above Please refer to www.cdc.gov/coronavirus for more up to date information.AllComments:Medication Management Patient Understands medications he 's taking? Yes No Are there Barriers to Adherence? Yes No Has the patient been asked about herbal supplements and therapies, andOTC meds? Yes No Care Plan1. Patient has been queried about patient's goals/preferences and functional/lifestyle goals at relevant visits. If relevant, describe: na2. Treatment goals as explained to the patient: above3. Are there barriers to meeting treatment goals? Yes No If Yes, please describe: comorbid conditions, polypharmacy, disease process, environmental exposure 4. Self-Management goals as described to the patient: Yes NoAs always, we strongly encourage a healthy diet and making physical activity a part of your every day life. If you have questions about how or where to start, please contact the office.Follow up:Please contact front office staff to set up the online patient portal Functional Status Description No Information Available Mental Status Description No Information Available Referrals Description No Information Available
--- NOTE | 2019-07-29 13:55 | ED ---
Shortness of Breath - HPI Summary HPI Summary: 69 y/o F presenting to [facility] from her PCP's office c/o SOB worse with exertion x1 week. She is unable to catch her breath. Last night she was lying down and felt like she had no air in her lungs. She denies chest pain, swelling in legs, cough. She reports sore throat. Saw CUMULATIVE EFFECTS ANALYST at Dr. Modi's office today, had EKG done which showed new changes, was sent to the ER to r/o ACS. Hx blood clot 40 years ago. Medications reviewed. Allergies reviewed. - History of Current Complaint Chief Complaint: EDShortnessOfBreath Time Seen by Provider: 07/29/19 13:50 Hx Obtained From: Patient Onset/Duration: Lasting Weeks - 1, Still Present Timing: Constant Dyspnea At: Exertion Aggravating Factors: Nothing Alleviating Factors: Nothing - Allergy/Home Medications Allergies/Adverse Reactions: Allergies Allergy/AdvReac Type Severity Reaction Status Date / Time Adhesive Tape Allergy RED Verified 07/29/19 13:02 BLOTCHES ALL OVER irbesartan [From Avapro] Allergy Unknown Verified 07/29/19 13:02 Reaction Details rofecoxib [From Vioxx] Allergy Dizziness Verified 07/29/19 13:02 IVP DYE Allergy Hives Uncoded 07/29/19 13:02 Home Medications: Home Medications Aspirin EC TAB* [Ecotrin EC Low Dose 81 MG*] 81 mg PO DAILY 11/16/16 [History Confirmed 07/29/19] Atorvastatin* [Lipitor*] 40 mg PO DAILY 11/16/16 [History Confirmed 07/29/19] Metoprolol Succinate XL TAB* [Toprol XL TAB*] 50 mg PO DAILY 11/16/16 [History Confirmed 07/29/19] PMH/Surg Hx/FS Hx/Imm Hx Endocrine/Hematology History: Denies: Hx Anticoagulant Therapy Cardiovascular History: Reports: Hx Coronary Artery Disease - on meds, Hx Hypertension - ON MEDS Comment Only: Other Cardiovascular Problems/Disorders - ON LIPITOR FOR NARROW ARTERIES Respiratory History: Reports: Other Respiratory Problems/Disorders - HX OF PNEUMONIA ABOUT 7 YEARS AGO GI History: Denies: Other GI Disorders Musculoskeletal History: Reports: Hx Arthritis - BILATERAL KNEES AND FEET and back Denies: Other Musculoskeletal History Sensory History: Denies: Hx Contacts or Glasses Opthamlomology History: Denies: Hx Contacts or Glasses Neurological History: Reports: Hx Transient Ischemic Attacks (TIA) - Cancer History Hx Chemotherapy: No Hx Radiation Therapy: No - Surgical History Surgical History: Yes Surgery Procedure, Year, and Place: 2010 HAD D & C AFTER LAST ULTRASOUND FOR POLYPS. 1982 CHOLECYSTECTOMY, [facility]. 1979 CSECTION, [facility]. 1982 LEFT FIBULA FRACTURE REPAIRS, [facility]. knee surgery, 2006 Hx Anesthesia Reactions: Yes - n/v post op Infectious Disease History: No Infectious Disease History: Denies: Traveled Outside the [place] in Last 30 Days - Family History Known Family History: Positive: Diabetes, Other - CVA and cancer - Social History Alcohol Use: None Substance Use Type: Reports: None Hx Tobacco Use: No Smoking Status (MU): Never Smoked Tobacco Review of Systems Positive: Sore Throat Negative: Chest Pain Positive: Shortness Of Breath. Negative: Cough Negative: Edema All Other Systems Reviewed And Are Negative: Yes Physical Exam - Summary Physical Exam Summary: Constitutional: Obese, Alert. (-) Distressed Skin: Warm, Dry HENT: Normocephalic; Atraumatic Eyes: Conjunctiva normal Neck: Musculoskeletal ROM normal neck. (-) JVD, (-) Stridor, (-) Nuchal rigidity Cardio: Rhythm regular, rate normal, Heart sounds normal; Intact distal pulses; Radial pulses are 2+ and symmetric. (-) Murmur Pulmonary/Chest wall: Effort normal. (-) Respiratory distress, (-) Wheezes, (-) Rales Abd: Soft, (-) tenderness, (-) Distension, (-) Guarding, (-) Rebound Musculoskeletal: (-) Edema Lymph: (-) Cervical adenopathy Neuro: Alert, Oriented x3 Psych: Mood and affect Normal Triage Information Reviewed: Yes Vital Signs On Initial Exam: Initial Vitals Temp Pulse Resp BP Pulse Ox 97.9 F 80 20 160/102 99 07/29/19 13:01 07/29/19 13:01 07/29/19 13:01 07/29/19 13:01 07/29/19 13:01 Vital Signs Reviewed: Yes Procedures - Sedation Patient Received Moderate/Deep Sedation with Procedure: No Diagnostics - Vital Signs Vital Signs Temp Pulse Resp BP Pulse Ox 07/29/19 13:01 97.9 F 80 20 160/102 99 - Laboratory Result Diagrams: 07/29/19 15:00 07/29/19 15:00 Lab Statement: Any lab studies that have been ordered have been reviewed, and results considered in the medical decision making process. - Radiology CXR Radiology Interpretation Completed By: Radiologist - IMPRESSION: NO EVIDENCE FOR ACUTE DISEASE. ED physician has reviewed this imaging report. - EKG 1430 Cardiac Rate: NL - 68 BPM EKG Rhythm: Sinus Rhythm EKG Comparison: No Significant Change - 2005 Summary of EKG Findings: An EKG at 1430 reveals normal sinus rhythm 68 BPM. T wave inversions in lead 3. No STEMI. When compared to EKG done in 2006, no significant change. ED physician has reviewed and interpreted this EKG. Re-Evaluation - Re-Evaluation First Eval Re-Evaluation Time: 16:31 - she agrees to admission Course/Dx - Course Course Of Treatment: 69 y/o F p/w SOB. Shortness of breath ddx: Concern for ACS. Also consider: COPD exacerbation/asthma - no h/o COPD, no wheezing on exam. Low suspicion. PNA - no sputum production, no fevers or chills. No leukocytosis. CXR w/o infiltrate. Low suspicion. PTX - breath sounds equal, no risk factors for PTX, CXR w/o e/o PTX. CHF - no h/o CHF, no EUGENE or orthopnea, no BLE edema, CXR w/o pulmonary edema. PE - no risk factors for PE, no unilateral leg swelling. Wells low risk, d dimer normal. Will admit for cardiac rule out, heart score: 5. Moderate risk - Diagnoses Provider Diagnoses: Shortness of breath - Physician Notifications Discussed Care of Patient With: Viviane Juarez - Agrees to admit patient Time Discussed With Above Provider: 16:25 - Critical Care Time Critical Care Statement: Critical care time is provided exclusive of any time spent performing procedures. Discharge ED - Sign-Out/Discharge Documenting (check all that apply): Patient Departure - Discharge Plan Condition: Stable Disposition: ADMITTED TO [facility] Referrals: Jace Modi MD [Primary Care Provider] - - Billing Disposition and Condition Condition: STABLE Disposition: Admitted to [facility] - Attestation Statements Document Initiated by Scribe: Yes Documenting Scribe: Nano Green Provider For Whom Scribe is Documenting (Include Credential): Lina Rivero MD Scribe Attestation: I, Nano Green, scribed for Lina Rivero MD on 07/29/19 at 1635. Scribe Documentation Reviewed: Yes Provider Attestation: The documentation as recorded by the scribe, Nano Green accurately reflects the service I personally performed and the decisions made by , Lina Rivero MD Status of Scribe Document: Viewed
[2019-07-29 15:14] LABS: ABS Basophils 0.1 10^3/ul (0-0.2); ABS Eosinophils 0.3 10^3/ul (0-0.6); ABS Monocytes 0.6 10^3/ul (0-0.8); ABS Neutrophils 6.3 10^3/ul (1.5-7.7); Eosinophil % 3.2 %; Hematocrit 38 % (35-47); Lymphocyte % 21.6 %; Mean Corpuscular HGB Conc 34 g/dL (31-36); Mean Corpuscular Hemoglobin 31 pg (27-31); Mean Corpuscular Volume 90 fL (80-97); Mean Platelet Volume 10.5 fL (7.4-10.4); Platelet Count 328 10^3/uL (150-450); Red Blood Count 4.25 10^6 /uL (3.70-4.87); Red Cell Distribution Width 14 % (10-15); White Blood Count 9.2 10^3/uL (3.5-10.8)
[2019-07-29 15:36] LABS: Troponin I 0.01 ng/mL (<0.03)
[2019-07-29 16:10] LABS: Albumin 3.7 g/dL (3.2-5.2); Albumin/Globulin Ratio 1.1 (1-3); BUN/Creatinine Ratio 22.5 (8-20); EGFR African American 98.5 (>60); EGFR Non-African American 81.4 (>60); Globulin 3.5 g/dL (2-4); Total Bilirubin 0.9 mg/dL (0.2-1.0); Total Protein 7.2 g/dL (6.4-8.9)
[2019-07-29] MEDS ORDERED: Acetaminophen TAB* 325 MG PO PRN (17:15)
--- NOTE | 2019-07-29 18:23 | HP ---
CC: Dr. Modi* HISTORY AND PHYSICAL: DATE OF ADMISSION: 07/29/19 PROVIDER: Shabana Mike NP PRIMARY CARE PROVIDER: Dr. Modi. ATTENDING PHYSICIAN WHILE IN THE HOSPITAL: Dr. Viviane Juarez* (dictated by Shabana Mike NP). CHIEF COMPLAINT: Exertional shortness of breath, left-sided chest pain, sore throat. HISTORY OF PRESENT ILLNESS: Ms. Jimenez is a 69-year-old female with past medical history significant for hypertension, hyperlipidemia, history of skin cancer, who presented to the emergency room with complaints of shortness of breath x1 week. The patient reports that over the past week, she has had exertional shortness of breath, but last night when she was lying in bed she became short of breath, she felt like she "could not get air into her lungs." The patient reports that for the past month, she has been walking approximately a city block and back with her walker and has been doing fine without any shortness of breath. Over the past week, she reports that she has not been able to even walk half a block without having severe shortness of breath and the development of left-sided chest pain. She reports that it is a dull ache in the left side of her chest, lower rib area. She reports that it only lasts seconds and then dissipates. She does report that this is associated with exertion. The patient also reports that she lives with her brother, who was recently tested for COVID, which ruled out negative. She does report that she goes to the grocery store 2 to 3 times a week. She does report she wears a mask. The patient did report that she had an episode in May where she was at a lunch and she had a sudden onset of nausea and diaphoresis, felt like she was going to pass out. The patient reports that she left the lunch and immediately got in her car and drove home, laid down and symptoms resolved. She has had no further episodes of this type since. While in the emergency room, the patient had routine lab work drawn. Her initial troponin was within normal limits. Due to her exertional shortness of breath and left-sided chest pain, Hospital Medicine was asked to see and evaluate her for admission. Due to the patient's complaint of sore throat for 3 to 4 days, shortness of breath, she will be tested for COVID and ruled out. PAST MEDICAL HISTORY: Significant for hypertension, hyperlipidemia, history of skin cancer. PAST SURGICAL HISTORY: 1. . 2. Fibular fracture repair. 3. Skin cancer removed. 4. Tonsillectomy. 5. Cholecystectomy. HOME MEDICATIONS: Include: 1. Metoprolol 50 mg p.o. daily. 2. Aspirin 81 mg p.o. daily. 3. Lipitor 40 mg p.o. daily. ALLERGIES: To ADHESIVE TAPE, IRBESARTAN, VIOXX, and IVP DYE. FAMILY HISTORY: Brother with a history of a stroke. Another brother with cardiac arrest at the age of 44 due to heart disease. No reported history of diabetes. Father from lung cancer. SOCIAL HISTORY: The patient denies any tobacco, alcohol, or illicit drug use. She lives with her brother. She uses a walker when walking long distance. Surrogate decision maker in the event she is unable to make her own decisions is her daughter. She is a full code. REVIEW OF SYSTEMS: She denies any fevers or unintended weight loss. She does report dull ache to the left side of her chest with exertional shortness of breath. She denies any edema. She denies any cough or hemoptysis. She does report again the exertional shortness of breath. She reports a sore throat. She denies any nausea, vomiting, diarrhea, abdominal pain, hematuria, dysuria. Denies any focal weakness or sensory loss. Denies any dysphagia, arthralgias, myalgias, rashes, lesions, open sores, psychosis, or anxiety. PHYSICAL EXAMINATION GENERAL: At this time, Ms. Jimenez is a 69-year-old female. She is alert and oriented, resting on the stretcher in the emergency room. She is in no acute distress. VITAL SIGNS: Blood pressure 160/102, heart rate 80, respirations 20, O2 saturation 99%, temperature was 97.7. HEENT: Head is atraumatic, normocephalic. Eyes: EOMs are intact. Sclerae anicteric and not pale. Oral mucosa is moist. NECK: Supple. LUNGS: Clear to auscultation bilaterally. No wheezes, rales, or rhonchi. CARDIAC: S1, S2. Regular rate and rhythm. No murmurs, rubs, or gallops. ABDOMEN: Obese, soft, nontender. Bowel sounds are present x4. EXTREMITIES: She is able to move all 4 extremities. There is no clubbing or cyanosis. Pedal pulses are +2 bilaterally. She has no peripheral edema. NEUROLOGIC: She is awake, alert, oriented x3. Speech is clear. Thought process is intact. SKIN: Intact. DIAGNOSTIC STUDIES/LAB DATA: WBCs are 9.2, RBCs 4.25, hemoglobin 13.0, hematocrit is 38, platelet count is 328. D-dimer was less than 200. Sodium 140 , potassium 4.0, chloride 107, carbon dioxide was 24, anion gap was 9, BUN was 16, creatinine 0.71, glucose was 86, calcium 9.0. Total bilirubin 0.90, ASTs were 18, ALTs were 18, alkaline phosphatase was 108. Troponin was 0.01, BNP was 47. She had a chest x-ray that showed no active disease. She had an electrocardiogram, which showed sinus rhythm at a rate of 68. She does have a T-wave inversion in V1. ASSESSMENT AND PLAN: Ms. Jimenez is a 69-year-old female with a past medical history significant for hypertension, hyperlipidemia, who presented to the emergency room with complaints of exertional shortness of breath, left-sided chest pain, and a sore throat. She will be admitted under observation for: 1. Exertional shortness of breath. The patient has developed exertional shortness of breath over the past week. We will bring her in to rule out cardiac involvement of her exertional shortness of breath, but within the differential is also COVID as the patient does report sore throat and shortness of breath. She does report that her brother who she lives with was recently tested for COVID due to exposure risk and was negative. The patient does report that she shops at the grocery store 2 to 3 times a week, increasing her risk of getting COVID, so at this time we will obtain COVID testing. Once she is ruled out, I would recommend that the patient have a chemical nuclear stress test. We will continue to trend her troponins. I will continue her on aspirin , metoprolol, and atorvastatin as previously prescribed. 2. Hypertension. She can continue on metoprolol as previously prescribed. 3. Hyperlipidemia. She should continue on atorvastatin as previously prescribed. 4. Chest pain. The patient does report the development of a dull ache in the left side of her chest associated with exertional shortness of breath. Again, I think once the patient is ruled out for COVID, she should have a chemical nuclear stress test to rule out cardiac involvement. At this time, we will continue to trend her troponin and we will continue her on metoprolol, Lipitor, and aspirin. 5. FEN: She can have a heart-healthy, decaf okay diet. 6. Code status: She is a full code. 7. DVT prophylaxis: I will put her on Lovenox subcu. TIME SPENT: Time spent on this admission was 60 minutes, greater than half that time was spent at the bedside reviewing events leading thus far to her hospitalization, performing physical exam, and reviewing my plan of care. I have discussed this with my attending, Dr. Viviane Juarez; she is in agreement with my plan. SHABANA MIKE, EDILMA [id number]/[facility] #: [id number] MAUREEN
[2019-07-29] MEDS ORDERED: Atorvastatin* 10 MG TAB PO SCH (21:00)
[2019-07-29] MEDS: Enoxaparin(*) 40 MG/0.4 ML SYR SUBCUT SCH (21:06)
[2019-07-30 05:51] LABS: ABS Basophils 0.1 10^3/ul (0-0.2); ABS Eosinophils 0.4 10^3/ul (0-0.6); ABS Lymphocytes 2.5 10^3/ul (1.0-4.8); ABS Monocytes 0.6 10^3/ul (0-0.8); ABS Neutrophils 4.2 10^3/ul (1.5-7.7); Eosinophil % 4.5 %; Hematocrit 36 % (35-47); Hemoglobin 12.1 g/dL (12.0-16.0); Lymphocyte % 32.5 %; Mean Corpuscular HGB Conc 34 g/dL (31-36); Mean Corpuscular Hemoglobin 30 pg (27-31); Mean Corpuscular Volume 90 fL (80-97); Mean Platelet Volume 10.3 fL (7.4-10.4); Platelet Count 280 10^3/uL (150-450); Red Blood Count 4.01 10^6 /uL (3.70-4.87); Red Cell Distribution Width 14 % (10-15); White Blood Count 7.8 10^3/uL (3.5-10.8)
[2019-07-30 06:06] LABS: BUN/Creatinine Ratio 21.3 (8-20); Calcium 8.8 mg/dL (8.6-10.3); EGFR African American 92.4 (>60); EGFR Non-African American 76.4 (>60); HDL Cholesterol 28.3 mg/dL; Potassium 4.1 mmol/L (3.5-5.0)
[2019-07-30] MEDS: Aspirin EC TAB* 81 MG TAB.EC PO SCH (08:53)
[2019-07-30] MEDS: Atorvastatin* 10 MG TAB PO SCH (08:53)
[2019-07-30] MEDS: Metoprolol Succinate XL TAB* 50 MG PO SCH (08:53)
--- NOTE | 2019-07-30 14:34 | PN ---
Subjective Date of Service: 07/30/19 Interval History: Pt reports that she is feeling quite well today. Pt reports that she has been without SOB or chest pain today. Has been pacing in the room with her walker to pass time. Pt denies SOB with ambulation. Family History: Unchanged from Admission Social History: Unchanged from Admission Past Medical History: Unchanged from Admission Objective Active Medications: Acetaminophen (Tylenol Tab*) 650 mg PO Q6H PRN PRN Reason: MILD PAIN or TEMP > 100.4 Aspirin (Aspirin Ec Tab*) 81 mg PO DAILY [facility] Last Admin: 07/30/19 08:53 Dose: 81 mg Atorvastatin Calcium (Lipitor*) 40 mg PO DAILY [facility] Last Admin: 07/30/19 08:53 Dose: 40 mg Enoxaparin Sodium (Lovenox(*)) 40 mg SUBCUT Q24H [facility] Last Admin: 07/29/19 21:06 Dose: 40 mg Metoprolol Succinate (Toprol Xl Tab*) 50 mg PO DAILY [facility] Last Admin: 07/30/19 08:53 Dose: 50 mg Vital Signs - 8 hr 07/30/19 07/30/19 08:42 12:52 Temperature 96.8 F 97.3 F Pulse Rate 79 74 Respiratory 16 16 Rate Blood Pressure 138/85 151/88 (mmHg) O2 Sat by Pulse 100 97 Oximetry Oxygen Devices in Use Now: None Appearance: Obese woman appearing younger than stated age sitting up at edge of bed without any acute distress. Eyes: No Scleral Icterus, PERRLA Ears/Nose/Mouth/Throat: NL Teeth, Lips, Gums, Clear Oropharnyx, Mucous Membranes Moist Neck: NL Appearance and Movements; NL JVP, Trachea Midline, No Thyroid Enlargement, Masses Respiratory: Symmetrical Chest Expansion and Respiratory Effort, Clear to Auscultation Cardiovascular: NL Sounds; No Murmurs; No JVD, RRR, No Edema Abdominal: NL Sounds; No Tenderness; No Distention, No Hepatosplenomegaly Lymphatic: No Cervical Adenopathy Extremities: No Edema, No Clubbing, Cyanosis Skin: No Rash or Ulcers, No Nodules or Sclerosis Neurological: Alert and Oriented x 3, NL Sensation, NL Muscle Strength and Tone Result Diagrams: 07/30/19 05:24 07/30/19 05:24 Assess/Plan/Problems-Billing Assessment: 69 yof patient with medical history significant for HTN, HLD, Skin CA, and obesity presents to ED for complaints of SOB and chest pain. - Patient Problems (1) Shortness of breath Current Visit: Yes Comment: -Pt is stable on RA @ 97% -Denies dyspnea on exertion -R/O Covid (2) Chest pain Current Visit: Yes Comment: -Denies chest pain at this time. Following results of COVID testing pt will go for stress testing. -Troponin 0.01 x 3 (3) HTN (hypertension) Current Visit: Yes Comment: -Resume home dose metoprolol (4) HLD (hyperlipidemia) Current Visit: Yes Comment: -Continue home dosing atorvastatin (5) DVT prophylaxis Current Visit: Yes Comment: -Lovenox SQ (6) Full code status Current Visit: Yes Status and Disposition: Stable
[2019-07-30] MEDS: Enoxaparin(*) 40 MG/0.4 ML SYR SUBCUT SCH (17:39)
[2019-07-31] MEDS: Atorvastatin* 10 MG TAB PO SCH ×2 (08:23→10:54)
[2019-07-31] MEDS: Metoprolol Succinate XL TAB* 50 MG PO SCH ×2 (08:23→10:53)
[2019-07-31] MEDS: Aspirin EC TAB* 81 MG TAB.EC PO SCH ×2 (08:23→10:51)
[2019-07-31] MEDS: Enoxaparin(*) 40 MG/0.4 ML SYR SUBCUT SCH (17:21)
--- NOTE | 2019-07-31 19:40 | PN ---
Subjective Date of Service: 07/31/19 Interval History: pt reports that she continues to feel well today. She does however report that she experienced one episode of sharp chest pain lasting just seconds. Pt denies any SOB, continued chest pain, dizziness, abdominal pain, or headaches. Pt is alert and oriented x 3. Family History: Unchanged from Admission Social History: Unchanged from Admission Past Medical History: Unchanged from Admission Objective Active Medications: Acetaminophen (Tylenol Tab*) 650 mg PO Q6H PRN PRN Reason: MILD PAIN or TEMP > 100.4 Aspirin (Aspirin Ec Tab*) 81 mg PO DAILY [facility] Last Admin: 07/31/19 10:51 Dose: 81 mg Atorvastatin Calcium (Lipitor*) 40 mg PO DAILY [facility] Last Admin: 07/31/19 10:54 Dose: 40 mg Enoxaparin Sodium (Lovenox(*)) 40 mg SUBCUT Q24H [facility] Last Admin: 07/31/19 17:21 Dose: 40 mg Metoprolol Succinate (Toprol Xl Tab*) 50 mg PO DAILY [facility] Last Admin: 07/31/19 10:53 Dose: 50 mg Vital Signs - 8 hr 07/31/19 15:15 Temperature 96.8 F Pulse Rate 65 Respiratory 18 Rate Blood Pressure 120/64 (mmHg) O2 Sat by Pulse 100 Oximetry Oxygen Devices in Use Now: None Appearance: Obese elderly woman sitting up in bed watching TV. Pt is without any distress. Eyes: No Scleral Icterus, PERRLA Ears/Nose/Mouth/Throat: NL Teeth, Lips, Gums, Clear Oropharnyx, Mucous Membranes Moist Neck: NL Appearance and Movements; NL JVP, Trachea Midline, No Thyroid Enlargement, Masses Respiratory: Symmetrical Chest Expansion and Respiratory Effort, Clear to Auscultation Cardiovascular: NL Sounds; No Murmurs; No JVD, RRR, No Edema Abdominal: NL Sounds; No Tenderness; No Distention, No Hepatosplenomegaly Lymphatic: No Cervical Adenopathy Extremities: No Edema, No Clubbing, Cyanosis Skin: No Nodules or Sclerosis Neurological: Alert and Oriented x 3, NL Sensation, NL Gait, NL Muscle Strength and Tone Nutrition: Taking PO's Result Diagrams: 07/30/19 05:24 07/30/19 05:24 Assess/Plan/Problems-Billing Assessment: 69 yof patient with medical history significant for HTN, HLD, Skin CA, and obesity presents to ED for complaints of SOB and chest pain. - Patient Problems (1) Shortness of breath Current Visit: Yes Comment: -Pt is stable on RA @ 97% -Denies dyspnea on exertion -Pt was unable to be discharged for outpt stress testing due to pending COVID results as she was unable to quarantine at home as she lives with her brother and they share a bathroom. -COVID not detected. Pt without any further SOB (2) Chest pain Current Visit: Yes Comment: -Denies chest pain at this time. Following results of COVID testing pt will go for stress testing. -Troponin 0.01 x 3 -Nuclear stress test 07/31 NPO after midnight (3) HTN (hypertension) Current Visit: Yes Comment: -Resume home dose metoprolol (4) HLD (hyperlipidemia) Current Visit: Yes Comment: -Continue home dosing atorvastatin (5) DVT prophylaxis Current Visit: Yes Comment: -Lovenox SQ (6) Full code status Current Visit: Yes Status and Disposition: Stable
[2019-08-01 07:34] LABS: ABS Basophils 0.1 10^3/ul (0-0.2); ABS Eosinophils 0.3 10^3/ul (0-0.6); ABS Lymphocytes 2.6 10^3/ul (1.0-4.8); ABS Monocytes 0.6 10^3/ul (0-0.8); ABS Neutrophils 4.8 10^3/ul (1.5-7.7); Hematocrit 38 % (35-47); Hemoglobin 13.2 g/dL (12.0-16.0); Lymphocyte % 30.8 %; Mean Corpuscular HGB Conc 34 g/dL (31-36); Mean Corpuscular Hemoglobin 31 pg (27-31); Mean Corpuscular Volume 89 fL (80-97); Mean Platelet Volume 10.4 fL (7.4-10.4); Platelet Count 316 10^3/uL (150-450); Red Cell Distribution Width 15 % (10-15); White Blood Count 8.3 10^3/uL (3.5-10.8)
[2019-08-01 07:53] LABS: BUN/Creatinine Ratio 18.7 (8-20); EGFR African American 92.4 (>60); EGFR Non-African American 76.4 (>60); Potassium 4.1 mmol/L (3.5-5.0)
[2019-08-01] MEDS: Metoprolol Succinate XL TAB* 50 MG PO SCH (09:29)
[2019-08-01] MEDS: Aspirin EC TAB* 81 MG TAB.EC PO SCH (09:29)
[2019-08-01] MEDS: Atorvastatin* 10 MG TAB PO SCH ×2 (09:30→13:31)
[2019-08-01] MEDS ORDERED: Aminophylline IV* 25 MG/ML 10 ML VIAL ONE (10:20)
[2019-08-01] MEDS ORDERED: Regadenoson* 0.4 MG/5 ML SYRINGE ONE (10:20)
--- NOTE | 2019-08-01 17:07 | PN ---
Subjective Date of Service: 08/01/19 Interval History: Pt is alert and oriented x 3. Denies chest pain, SOB, or dizziness. Family History: Unchanged from Admission Social History: Unchanged from Admission Past Medical History: Unchanged from Admission Objective Active Medications: Acetaminophen (Tylenol Tab*) 650 mg PO Q6H PRN PRN Reason: MILD PAIN or TEMP > 100.4 Aspirin (Aspirin Ec Tab*) 81 mg PO DAILY [facility] Last Admin: 08/01/19 09:29 Dose: 81 mg Atorvastatin Calcium (Lipitor*) 40 mg PO DAILY [facility] Last Admin: 08/01/19 13:31 Dose: 40 mg Enoxaparin Sodium (Lovenox(*)) 40 mg SUBCUT Q24H [facility] Last Admin: 07/31/19 17:21 Dose: 40 mg Metoprolol Succinate (Toprol Xl Tab*) 50 mg PO DAILY [facility] Last Admin: 08/01/19 09:29 Dose: 50 mg Vital Signs - 8 hr 08/01/19 14:58 Temperature 97.7 F Pulse Rate 75 Respiratory 20 Rate Blood Pressure 100/57 (mmHg) O2 Sat by Pulse 98 Oximetry Oxygen Devices in Use Now: None Appearance: Obese elderly woman sitting up in bed watching TV. No distress noted. Eyes: No Scleral Icterus, PERRLA Ears/Nose/Mouth/Throat: NL Teeth, Lips, Gums, Clear Oropharnyx, Mucous Membranes Moist Neck: NL Appearance and Movements; NL JVP, Trachea Midline, No Thyroid Enlargement, Masses Respiratory: Symmetrical Chest Expansion and Respiratory Effort, Clear to Auscultation Cardiovascular: NL Sounds; No Murmurs; No JVD, RRR, No Edema Abdominal: NL Sounds; No Tenderness; No Distention Lymphatic: No Cervical Adenopathy Extremities: No Edema, No Clubbing, Cyanosis Skin: No Rash or Ulcers, No Nodules or Sclerosis Neurological: Alert and Oriented x 3, NL Sensation, NL Muscle Strength and Tone Nutrition: Taking PO's Result Diagrams: 08/01/19 07:00 08/01/19 07:00 Assess/Plan/Problems-Billing Assessment: 69 yof patient with medical history significant for HTN, HLD, Skin CA, and obesity presents to ED for complaints of SOB and chest pain. - Patient Problems (1) Shortness of breath Current Visit: Yes Comment: -07/31- pt remains without C/O of SOB. VSS -Pt is stable on RA @ 97% -Denies dyspnea on exertion -Pt was unable to be discharged for outpt stress testing due to pending COVID results as she was unable to quarantine at home as she lives with her brother and they share a bathroom. -COVID not detected. Pt without any further SOB (2) Chest pain Current Visit: Yes Comment: -07/31- Stress testing part 1- photopenia inferior wall of apex. otherwise normal. Pt remains without chest pain. -Denies chest pain at this time. Following results of COVID testing pt will go for stress testing. -Troponin 0.01 x 3 -Nuclear stress test 07/31 NPO after midnight (3) HTN (hypertension) Current Visit: Yes Comment: -Well controlled -Resume home dose metoprolol (4) HLD (hyperlipidemia) Current Visit: Yes Comment: -Continue home dosing atorvastatin (5) DVT prophylaxis Current Visit: Yes Comment: -Lovenox SQ (6) Full code status Current Visit: Yes Status and Disposition: Stable
[2019-08-01] MEDS: Enoxaparin(*) 40 MG/0.4 ML SYR SUBCUT SCH (18:03)
[2019-08-02 08:44] VITALS: BP 129/75
[2019-08-02] MEDS: Metoprolol Succinate XL TAB* 50 MG PO SCH (09:47)
[2019-08-02] MEDS: Aspirin EC TAB* 81 MG TAB.EC PO SCH (09:48)
[2019-08-02] MEDS: Atorvastatin* 10 MG TAB PO SCH (10:34)
--- NOTE | 2019-08-02 12:21 | DS ---
Amended report to enter cosigning physician. CC: Dr. Modi* DISCHARGE SUMMARY: DATE OF ADMISSION: 07/29/19 DATE OF DISCHARGE: 08/02/19 PROVIDER: Jayro Elena NP PRIMARY CARE PROVIDER: Dr. Jace Modi. ATTENDING PHYSICIAN WHILE IN THE HOSPITAL: Dr. Priyanka Ramirez* (dictated by Jayro Elena NP). PRIMARY DIAGNOSIS: Shortness of breath. SECONDARY DIAGNOSES: 1. Hypertension. 2. Hyperlipidemia. STUDIES WHILE IN THE HOSPITAL: 1. 07/29/19 chest x-ray: No evidence for acute disease. 2. ECG on 07/29/19: Sinus rhythm. Normal P axis. No ST elevations or T wave inversions. Rate of 68. 3. 07/30/19 ECG: Sinus rhythm. Normal P axis. No ST wave elevations. No T wave inversions. Rate of 73. 4. 08/02/19 nuclear medicine myocardial scan: Small partially reversible perfusion defect in the inferior wall, infarct with surrounding ischemia versus attenuation artifact. Small reversible perfusion defect in the anterior wall and the apex concerning for ischemia. No dyskinesia. EF 69%. Low risk assessment. HISTORY OF PRESENT ILLNESS AND HOSPITAL COURSE: Ms. Jimenez is a 69-year-old female patient with past medical history significant for hypertension, hyperlipidemia, history of skin cancer, who presented in the emergency room on 07/29/19 with shortness of breath x1 week, worsening on exertion. The patient reported that a week prior to arrival in the ER, she had increased difficulty ambulating. The patient also reported that she had developed a dull ache in the left chest that would resolve after just seconds and she reports that the discomfort occurs with exertion. While in the hospital, the patient did not exhibit any evidence of shortness of breath. The patient did not show any signs of hypoxia and was able to maintain saturations on room air 95% to 100% throughout her 5-day stay in the hospital. However, in the setting of shortness of breath, the patient was placed on contact precautions COVID 19, she did test negative. She does live with her brother, who was tested and ruled out as well, one week prior. While in the ER, the patient did have serial troponins performed, which they remained 0.01 x3 readings. Cholesterol levels were also obtained. Triglycerides 46, total cholesterol 103, LDL 67, HDL 28.3. The patient was without episodes of hypotension, however, she did complain of 2 to 3 episodes of sharp stabbing chest pain in left chest that lasted just seconds and quickly resolved. The patient had nuclear stress test performed on 08/02/19 as a result of her complaints of progressive shortness of breath and chest pain, which revealed an EF of 69%. No dyskinesia There was a small partially reversible perfusion defect in the inferior wall infarct with surrounding ischemia versus attenuation effect as well as small reversible perfusion defect in the anterior wall near the apex, concerning for ischemia. Her assessment according to the nuclear stress test is low risk. The patient is hemodynamically stable. Blood work remained stable. The patient remains without cough, chills, fever, shortness of breath. No elevations in white blood cell count. The patient is stable for discharge at this time. PHYSICAL EXAMINATION: On exam, the patient is alert and oriented 4. No focal neurological deficits. Head is atraumatic, normocephalic. Eyes are anicteric and PERRL. Normal teeth, lips, gums. Clear oropharynx. Mucous membranes are moist. Neck is supple. Normal in appearance and movement. No JVP. Trachea is midline. No thyroid enlargement or masses. Respiratory: Symmetrical chest expansion and respiratory effort. Clear to auscultation. Cardiovascular: Normal S1 and S2 heart sounds. Rate and rhythm are regular. No murmurs, rubs or gallops. No edema appreciated in extremities. Normal bowel sounds. No tenderness. No distention. Skin is without rash, ulcers, nodules or sclerosis. Physical exam is otherwise benign. Ms. Jimenez is stable for discharge. Most recent vital signs are as follows: 97.3 for temp, 78 for pulse rate, 20 respirations, 98% on room air, and 129/75 for blood pressure. DISCHARGE MEDICATIONS: There are no changes in the home medications. 1. Aspirin enteric coated tabs 81 mg p.o. daily. 2. Atorvastatin 40 mg p.o. daily. 3. Metoprolol succinate XL 50 mg p.o. daily. DISCHARGE PLAN: Ms. Jimenez will be discharged home. ACTIVITY: As tolerated. Resume your medications as prescribed. Follow your PCP for an appointment. Your nuclear stress test had no concerning findings, however, you should follow up with your PCP regarding chest pain. Continue the social distance if you must go out of your home. Please maintain at least 6 feet of separation between you and other people. Please wear a mask while going out. Practice good hand hygiene. Wash hands with soap and water frequently. Use hand marketing area manager while in public. If you develop any chest pain , shortness of breath, dizziness, fever, cough or chills, weakness on one side of the body or any other concerning symptoms, please return to the emergency department. DISCHARGE CONDITION: Stable. DISCHARGE DISPOSITION: Home. This is a summarized report of Ms. Jimenez' medical history and 5-day hospital stay. For further details, please see the entire medical record. TIME SPENT: Approximately 40 minutes spent on this discharge. JAYRO ELENA NP [id number]/CPS #: [id number] MAUREEN
== END 2019-08-02 11:10 | disposition home or self-care (01) | DRG 204 ==
LOC: ED 13:00 → MED 17:15 → OBSVTOIN 07-31 08:00 → MEDTELE 07-31 21:30
PROVIDERS: ADMIT Hospitalist; ATTEND Internal Medicine
DX: R06.02 Shortness of breath (principal); I10 Essential (primary) hypertension; E78.5 Hyperlipidemia, unspecified; R07.9 Chest pain, unspecified; Z20.828 Contact with and (suspected) exposure to other viral communicable diseases; J02.9 Acute pharyngitis, unspecified; Z85.828 Personal history of other malignant neoplasm of skin; Z79.82 Long term (current) use of aspirin; Z79.899 Other long term (current) drug therapy; Z91.041 Radiographic dye allergy status; Z88.8 Allergy status to other drugs, medicaments and biological substances; Z91.048 Other nonmedicinal substance allergy status; Z82.3 Family history of stroke; Z82.49 Family history of ischemic heart disease and other diseases of the circulatory system; Z80.1 Family history of malignant neoplasm of trachea, bronchus and lung
CPT/HCPCS: 36415; 71045; 78452; 80048; 80053; 80061; 83880; 84484; 85025; 85379; 87635; 93005; 93017; 96372; 99284; A9270-GY; A9502; G0378; J0280; J1650; J2785; U0003